=== PATIENT | male | born 1950 | race Two or more races ===

== ENCOUNTER 2018-12-19 10:08 | Inpatient (IN) | payer OTHER ==
[~2018-12-19] VITALS: Ht 167.6 cm; Wt 88.5 kg
[2018-12-19] MEDS ORDERED: IV NS 0.9% 1,000 ML BAG IV ONE ×3 (10:30→13:30)
[2018-12-19 11:26] LABS: BASOPHILS % (AUTO) 0.5 % (0.0-2.0); HEMATOCRIT 38 % (39-51); LYMPHOCYTES # (AUTO) 0.3 /CMM (0.8-4.8); LYMPHOCYTES % (AUTO) 3.9 % (20.0-44.0); MEAN CORPUSCULAR HGB CONC 32 g/dl (31.0-36.0); MEAN CORPUSCULAR VOLUME 94 fL (80-96); MONOCYTES # (AUTO) 0.4 /CMM (0.1-1.30); MONOCYTES % (AUTO) 6.4 % (2.0-12.0); NEUTROPHILS # (AUTO) 6.1 /CMM (1.8-8.9); NEUTROPHILS % (AUTO) 89.2 % (43.0-81.0); PLATELET COUNT (AUTO) 106 /CMM (150-450); RED BLOOD CELL COUNT(AUTO) 4.01 MIL/uL (4.5-6.0); WHITE BLOOD COUNT (AUTO) 6.9 K/uL (4.3-11.0)
[2018-12-19 11:30] LABS: CALCIUM, SERUM 8.4 mg/dL (8.5-10.1); CARBON DIOXIDE 16 mmol/L (21-32); CHLORIDE 104 mmol/L (98-107); CREATININE 1.5 mg/dL (0.6-1.3); GLUCOSE 205 mg/dL (74-106); POTASSIUM 4.1 mmol/L (3.5-5.1); SODIUM SERUM 137 mmol/L (136-145); UREA NITROGEN, BLOOD 19 mg/dL (7-18)
[2018-12-19] MEDS ORDERED: CYAN-51 PO (11:31)
[2018-12-19] MEDS ORDERED: LEVO75TA7 PO (11:31)
[2018-12-19] MEDS ORDERED: ASCO500T9 PO (11:31)
[2018-12-19] MEDS ORDERED: ATOR10TA PO (11:31)
[2018-12-19] MEDS ORDERED: ASPI-1152 PO (11:31)
[2018-12-19] MEDS ORDERED: MELO-107 PO (11:31)
[2018-12-19] MEDS ORDERED: INSU100V27 SQ (11:31)
[2018-12-19] MEDS ORDERED: FURO-145 PO (11:31)
[2018-12-19] MEDS ORDERED: MAGN200T9 PO (11:31)
[2018-12-19] MEDS ORDERED: OMEP20CA11 PO (11:31)
[2018-12-19] MEDS ORDERED: LISI-603 PO (11:31)
[2018-12-19] MEDS ORDERED: APIX5TAB PO (11:31)
[2018-12-19 11:35] LABS: ALANINE AMINOTRANSFERASE 35 U/L (12-78); ALBUMIN 2.7 g/dL (3.4-5.0); ALKALINE PHOSPHATASE 116 U/L (46-116); ASPARTATE AMINOTRANSFERASE 76 U/L (15-37); BILIRUBIN,DIRECT 0.2 mg/dL (0.0-0.2); BILIRUBIN,TOTAL 0.7 mg/dL (0.2-1.0); TOTAL PROTEIN, SERUM 6.1 g/dL (6.4-8.2)
[2018-12-19 11:56] LABS: APPEARANCE,URINE Turbid (CLEAR); BILIRUBIN,URINE Negative (NEGATIVE); BLOOD, URINE Large Ery/uL (NEGATIVE); KETONES,URINE Trace (NEGATIVE); LEUKOCYTE ESTERASE ,URINE Large (NEGATIVE); NITRITE, URINE Positive (NEGATIVE); PROTEIN,URINE 30 mg/dl (NEGATIVE); UGLUCOSE 100 MG/DL mg/dL (NEGATIVE); UROBILINOGEN,URINE 0.2 EU/dL (0.2)
[2018-12-19 11:57] LABS: COLOR,URINE Dark Yellow (YELLOW)
[2018-12-19 12:00] LABS: BACTERIA,URINE Many /HPF (None Seen); RBC,URINE TOO NUMEROUS TO COUN /HPF (0-2); SQUAMOUS EPITHELIAL CELL,UR Few /HPF (None Seen); WBC,URINE TOO NUMEROUS TO COUN /HPF (0-3)
[2018-12-19] MEDS ORDERED: PIPERACILLIN /TAZOBACTAM 3.375 G in IV D5W 50 ML IV SCH (12:00)
[2018-12-19] MEDS ORDERED: METO25TA6 PO (12:03)
[2018-12-19] MEDS ORDERED: IV NS 0.9% 250 ML IV ONE (12:30)
[2018-12-19] MEDS ORDERED: CT SWABBABLE VALVE TRANS SET 1 EA INFUS.SET MC ONE (12:30)
[2018-12-19] MEDS ORDERED: IOHEXOL-350 100 ML VIAL IV ONE (12:30)
--- NOTE | 2018-12-19 12:43 | NUR ---
Patient has RT hand IVF infusine well no edema ,no pain ,needs another heplock patient has multiple stick non succesful ,telecommunications field technician ok the rt hand IV good blood return ,
--- NOTE | 2018-12-19 12:43 | NUR ---
Assumed care report given by Gerson Sanchez
--- NOTE | 2018-12-19 13:07 | NUR ---
Dr. Dupree @ bedside with order ekf
--- NOTE | 2018-12-19 13:57 | NUR ---
airdrop systems technician @ bedside for # 2 lactate
--- NOTE | 2018-12-19 15:00 | NUR ---
Called Bashir for report not ready spoke to Taye Garcia .I called supervisor frame assembly awaiting for bed
--- NOTE | 2018-12-19 15:22 | NUR ---
Patient resting comfortable no s/s of distress awaiting for bed
[2018-12-19 16:00] VITALS: BP 102/69
--- NOTE | 2018-12-19 16:06 | NUR ---
Family made aware plan of care repoprt given to Sherif NIX
[2018-12-19] MEDS ORDERED: Z GUARD REMEDY 2 OZ OINT TP PRN (19:00)
[2018-12-19] MEDS ORDERED: ONDANSETRON HCL/PF 4 MG/2 ML VIAL IVP PRN (19:00)
[2018-12-19] MEDS ORDERED: MAG HYDROX/AL HYDROX/SIMETH 30 ML UDC PO PRN (19:00)
[2018-12-19] MEDS ORDERED: ZOLPIDEM TARTRATE 5 MG TABLET PO PRN (19:00)
[2018-12-19] MEDS ORDERED: ACETAMINOPHEN 325 MG TABLET PO PRN (19:00)
[2018-12-19] MEDS ORDERED: MAGNESIUM HYDROXIDE 30 ML UDC PO PRN (19:00)
[2018-12-19] MEDS ORDERED: HYDROCODONE/APAP 5/325MG 1 EACH TABLET PO PRN (19:00)
[2018-12-19] MEDS ORDERED: DEXTROSE 50%-WATER 50 ML DISP.SYRIN IV PRN (19:30)
[2018-12-19 20:00] VITALS: BP 126/70
--- NOTE | 2018-12-19 20:41 | NUR ---
TELE NOTES CLOSING PATIENT CAME IN TO THE ER DUE TO A FALL AT HOME , PATIENT WAS ADMITTED TO THE ER DURING TREATMENT PATIENT WAS GIVEN ZOSYN AND NORMAL SALINE. PATIENT WAS TRANSFEREE TO [facility] PATIENT WAS REVICED BY AM SHIFT. PATIENTS DIAGNOSIS WAS UTI. PATIENT IS A/O X4 HEAD : NO SIGNS OF CUTS BRUSIES OR TRAUMA NO DRAINAGE PRESENT EYES: PATIENTS EYES ARE BRISK AND ACCOMMODATING PATIENTS LUNGS SOUNDS CLEAR AND NO SIGNS OF CRACKLERS OR STRIDOR. HEART: PATIENTS HEART SOUNDS REGULAR WITH SR DURING ER PATIENT HAS AFIB GI/ PATIENT NO BOWEL MOVEMENT DURING SHIFT. PATIENT CURRETLY HAS CATHETER SUPRAPUBIC PATIENTS URINE IS DARK YELLOW AND CLOUDY SKIN: ABDOMEN RASH : SACRAL BRUSING : RIGHT AND LEFT HEEL REDNESS : LEFT ANKLE SCAR PATIENT CURRENTLY EXPERIENCING WEAKNESS ON THE EXTREMITIES PATIENT RECEIVED BY PM SHIFT, BED LOW POSITION , SAFETY MAINTAINED AND CALL LIGHT WITH IN REACH WAS INFORMED ABOUT PLAN OF CARE AND DX.
--- NOTE | 2018-12-19 20:45 | NUR ---
GOT A CALL FROM LAB PATIENT'S TROPONIN IS [phone]. EDUCATIONAL RESOURCE COORDINATOR GORDON PASCUAL NOTIFIED. NO NEW ORDERS FOR NOW. WILL CONTINUE TO MONITOR PATIENT CLOSELY.
[2018-12-19] MEDS ORDERED: VANCOMYCIN 1 GM in IV D5W 250 ML IV SCH (21:00)
[2018-12-19] MEDS ORDERED: VANCOMYCIN 1 GM VIAL ONE (21:29)
[2018-12-19] MEDS: BLOOD SUGAR DIAGNOSTIC 1 EACH STRIP IN SCH ×2 (21:36→22:01)
[2018-12-19] MEDS: METOPROLOL TARTRATE 25 MG TABLET PO SCH (21:36)
[2018-12-19] MEDS: APIXABAN 5 MG TABLET PO SCH (22:02)
[2018-12-19] MEDS: INSULIN REGULAR, HUMAN 100 UNIT/ML 3 ML VIAL SQ PRN (22:09)
[2018-12-20] VITALS: BP 91/53
[2018-12-20] MEDS: ZOSYN IVPB 3.375 G in IV D5W 50ml IV SCH ×4 (00:26→21:58)
[2018-12-20] MEDS: IV NS 0.9% 1,000 ML IV PRN ×2 (00:27→18:03)
--- NOTE | 2018-12-20 01:11 | NUR ---
ANAYA RN NOTES RECEIVED REPORT FROM RAMIRO NIX FOR JENNIFER. PATIENT RESTING COMFORTABLY & IN NO APPARENT RESPIRATORY OR CARDIAC DISTRESS. COOLING MEASURES STILL IN PLACE FOR FEVER.
[2018-12-20 04:00] VITALS: BP 112/62
[2018-12-20 06:33] LABS: BASOPHILS % (AUTO) 0.8 % (0.0-2.0); EOSINOPHILS % (AUTO) 0.1 % (0.0-6.0); HEMATOCRIT 35 % (39-51); HEMOGLOBIN 11.6 g/dL (13.5-17.5); LYMPHOCYTES # (AUTO) 0.2 /CMM (0.8-4.8); LYMPHOCYTES % (AUTO) 7.6 % (20.0-44.0); MEAN CORPUSCULAR HGB CONC 33 g/dl (31.0-36.0); MEAN CORPUSCULAR VOLUME 91 fL (80-96); MONOCYTES # (AUTO) 0.2 /CMM (0.1-1.30); MONOCYTES % (AUTO) 6.6 % (2.0-12.0); NEUTROPHILS # (AUTO) 2.6 /CMM (1.8-8.9); NEUTROPHILS % (AUTO) 84.9 % (43.0-81.0); PLATELET COUNT (AUTO) 90 /CMM (150-450); RED BLOOD CELL COUNT(AUTO) 3.85 MIL/uL (4.5-6.0); WHITE BLOOD COUNT (AUTO) 3.1 K/uL (4.3-11.0)
[2018-12-20 06:40] LABS: CREATININE 1.1 mg/dL (0.6-1.3); MAGNESIUM 1.5 mg/dL (1.8-2.4); PHOSPHORUS 3.1 mg/dL (2.5-4.9); POTASSIUM 3.9 mmol/L (3.5-5.1)
[2018-12-20] MEDS: BLOOD SUGAR DIAGNOSTIC 1 EACH STRIP IN SCH ×4 (07:33→21:40)
[2018-12-20] MEDS: LEVOTHYROXINE SODIUM 75 MCG TABLET PO SCH (07:33)
[2018-12-20] MEDS: PANTOPRAZOLE 40 MG TABLET.DR PO SCH ×3 (07:33→21:46)
[2018-12-20] MEDS ORDERED: FEE PK DOSING 1 MIN EA MC ONE ×2 (07:46→12:31)
[2018-12-20 08:00] VITALS: BP 122/70
[2018-12-20] MEDS: ASPIRIN EC 81 MG TABLET.DR PO SCH (08:16)
[2018-12-20] MEDS: CYANOCOBALAMIN 500 MCG TABLET PO SCH (08:17)
[2018-12-20] MEDS: ASCORBIC ACID 500 MG TABLET PO SCH (08:17)
[2018-12-20] MEDS: METOPROLOL TARTRATE 25 MG TABLET PO SCH ×3 (08:19→18:04)
[2018-12-20] MEDS: VANCOMYCIN 1 GM in IV D5W 250 ML IV SCH ×2 (08:24→21:43)
[2018-12-20] MEDS: APIXABAN 5 MG TABLET PO SCH ×2 (09:00→18:03)
[2018-12-20] MEDS ORDERED: ATORVASTATIN 10 MG TABLET PO SCH (09:00)
[2018-12-20] MEDS ORDERED: VANCOMYCIN 0.75 GM in IV D5W 250 ML IV SCH (09:00)
--- NOTE | 2018-12-20 10:02 | NUR ---
WOUND CARE CONSULT: PT PRESENTS WITH BRUISING TO BACK, RASH TO LEFT ABDOMINAL/GROIN FOLD AND SLIGHT REDNESS TO SUPRAPUBIC CATH SITE, PRESENT ON ADMISSION. PER PT'S , PT HAS NOT BEEN ABLE TO CLEAN HIMSELF WELL RECENTLY. SUPRAPUBIC SITE WAS CLEANSED WITH NS, THEN NEW DRAIN-SPONGE APPLIED. SKIN TO BE KEPT CLEAN AND DRY. DEFER TO MD FOR SUPRAPUBIC SITE (POSSIBLE UROLOGY CONSULT). RECOMMENDATIONS MADE FOR SKIN CARE AND CARE OF RASH ON ABD/GROIN FOLDS. DISCUSSED SKIN CARE AND PROTECTION WITH NURSING STAFF. WILL SEE ZEB. IN AGREEMENT WITH PLAN OF CARE. Addendum: 12/20/18 at 1004 by BEAU OBRIEN WNDNU Amended: Links added.
[2018-12-20 12:00] VITALS: BP 111/67
[2018-12-20] MEDS: INSULIN REGULAR, HUMAN 100 UNIT/ML 3 ML VIAL SQ PRN ×2 (12:39→21:43)
[2018-12-20] MEDS: GENTAMICIN 120 MG in IV D5W 100 ML IV SCH (15:29)
[2018-12-20 16:00] VITALS: BP 128/75
[2018-12-20] MEDS: LIPASE/PROTEASE/AMYLASE 1 EACH CAPSULE.DR PO SCH (17:59)
[2018-12-20] MEDS: CLOTRIMAZOLE 1% 15 GM TUBE TP SCH (17:59)
[2018-12-20] MEDS: Magnesium 1GM/D5W 100ML PREMIX 100 ML IV SCH ×2 (17:59→19:09)
--- NOTE | 2018-12-20 19:00 | NUR ---
DIRECTOR AND PROFESSOR CLOSING PATIENT REMAINS A/Ox4, ON ROOM AIR, NO RESPIRATORY DISTRESS NOTED. DENIES CHEST PAIN. NO S/S STROKE NOTED. AT BEDSIDE. TELE MONITOR ATTACHED, SINUS RHYTHM HR 90s. SUPRAPUBLIC CATHETER DRAINING CLOUDY YELLOW URINE, SITE CLEANSED, PICTURE TAKEN. PATIENT AMBULATORY WITH WALKER W/ STANDBY ASSISTANCE. NOTED WEAKNESS. DENIES DIZZINESS UPON STANDING. SEEN BY WOUND CARE NURSE, ORDERS NOTED AND IMPLEMENTED. R HAND 18G INFUSING NS @100mL/HR. NO S/S INFILTRATION NOTED. PATIENT IS REFUSING TO BE POKED WITH ANOTHER IV SITE FOR ORDERED CT ANGIO TOMORROW, STATING THAT HE "HAD A CT YESTERDAY AND THE RADIOLOGIST SAID IT WAS OK TO USE LONG CONTRAST IS PUSHED SLOWLY". CONSENT PLACED IN CHART. NOTED LOW PLTS, PER CAMMY CASTELLANOS OKAY TO GIVE, PATIENT FALL RISK. NONSLIP SOCKS ON, BED ALARM ON, CALL LIGHT WITHIN REACH, PATIENT ABLE TO MAKE NEEDS KNOWN.
[2018-12-20 20:00] VITALS: BP 128/77
--- NOTE | 2018-12-20 20:15 | NUR ---
ANAYA RN OPENING NOTES RECEIVED REPORT FROM SUSY NIX. PATIENT A/A/O X4, ABLE TO VERBALIZE NEEDS. BREATHING EVEN & UNLABORED, TOLERATING ROOM AIR. DENIES ANY SOB OR DIFFICULTY BREATHING. ON TELE W/ SINUS RHYTHM W/ PVC, HR 80S. RIGHT HAND IV #18 INTACT & PATENT W/ DRESSING CDI & IVF NS INFUSING WELL @ 100 ML/HR. SUPRAPUBIC CATH IN PLACE & DRAINING DARK YELLOW URINE. DENIES ANY PAIN OR DISCOMFORT @ THIS TIME. SAFETY MEASURES IN PLACE W/ SIDE RAILS UP & BED ALARM ON. CALL LIGHT PLACED WITHIN REACH & INSTRUCTED TO CALL FOR ASSISTANCE. WILL CONTINUE TO MONITOR CLOSELY.
[2018-12-20] MEDS ORDERED: PIPERACILLIN /TAZOBACTAM 3.375 G VIAL IV ONE (21:57)
[2018-12-21] VITALS: BP 97/66
[2018-12-21] MEDS: GENTAMICIN 120 MG in IV D5W 100 ML IV SCH ×2 (00:18→15:19)
[2018-12-21 04:00] VITALS: BP 105/51
--- NOTE | 2018-12-21 06:00 | NUR ---
LITHOGRAPH PRESS OPERATOR NOTES CLARIFIED WITH RADIOLOGY REGARDING PATIENT'S IV SITE ON RIGHT HAND. PER RADIOLOGIST, MELINDA, IV #18 ON RIGHT HAND IS OK TO USE FOR CT ANGIOGRAM SCHEDULED TODAY LONG IT'S PATENT & FLUSHING WELL.
[2018-12-21] MEDS ORDERED: PIPERACILLIN /TAZOBACTAM 3.375 G VIAL IV ONE (06:23)
[2018-12-21] MEDS: ZOSYN IVPB 3.375 G in IV D5W 50ml IV SCH ×2 (06:27→14:02)
[2018-12-21] MEDS: METOPROLOL TARTRATE 25 MG TABLET PO SCH ×4 (06:28→17:58)
--- NOTE | 2018-12-21 07:20 | NUR ---
RN OPENING NOTES PT IS A&OX3 DENIES PAIN OR SOB AT PRESENT TIME. PT IS SCHEDULED FOR A CTCA TODAY HAS ONLY A RIGHT HAND 18 GAUGE. PER EXPORT MANAGER RN OKAY TO USE. BED IS LOCKED AND IN LOWEST POSITION WITH CALL LIGHT IN REACH. SUPRAPUBIC DRAINING TO GRAVITY. WILL CONTINUE TO MONITOR.
[2018-12-21 08:00] VITALS: BP 101/63
[2018-12-21] MEDS: BLOOD SUGAR DIAGNOSTIC 1 EACH STRIP IN SCH ×3 (08:13→17:23)
[2018-12-21] MEDS: LEVOTHYROXINE SODIUM 75 MCG TABLET PO SCH (08:22)
[2018-12-21] MEDS: ASPIRIN EC 81 MG TABLET.DR PO SCH (08:23)
[2018-12-21] MEDS: ASCORBIC ACID 500 MG TABLET PO SCH (08:23)
[2018-12-21] MEDS: CYANOCOBALAMIN 500 MCG TABLET PO SCH (08:24)
[2018-12-21] MEDS: LIPASE/PROTEASE/AMYLASE 1 EACH CAPSULE.DR PO SCH ×3 (08:24→17:20)
[2018-12-21] MEDS: APIXABAN 5 MG TABLET PO SCH ×2 (08:27→17:22)
[2018-12-21 08:45] LABS: BASOPHILS % (AUTO) 0.8 % (0.0-2.0); EOSINOPHILS % (AUTO) 3.6 % (0.0-6.0); HEMATOCRIT 34 % (39-51); HEMOGLOBIN 11.2 g/dL (13.5-17.5); LYMPHOCYTES # (AUTO) 0.5 /CMM (0.8-4.8); LYMPHOCYTES % (AUTO) 16.9 % (20.0-44.0); MEAN CORPUSCULAR HGB CONC 33 g/dl (31.0-36.0); MEAN CORPUSCULAR VOLUME 90 fL (80-96); MONOCYTES # (AUTO) 0.3 /CMM (0.1-1.30); NEUTROPHILS # (AUTO) 1.9 /CMM (1.8-8.9); NEUTROPHILS % (AUTO) 66.7 % (43.0-81.0); PLATELET COUNT (AUTO) 90 /CMM (150-450); RED BLOOD CELL COUNT(AUTO) 3.76 MIL/uL (4.5-6.0); WHITE BLOOD COUNT (AUTO) 2.9 K/uL (4.3-11.0)
--- NOTE | 2018-12-21 09:00 | NUR ---
LAURA FROM RADIOLOGY CALLED ASKING WHAT ACCESS. STATES PT MUST HAVE A 18 OR 20 GAUGE IN AC FOR THIS TEST. PT REFUSING TO ALLOW FOR MORE ATTEMPTS OF INSERTION OF ANOTHER IV.
[2018-12-21 09:18] LABS: BAND % (MANUAL) 1 % (0.0-5.0); EOSINOPHILS % (MANUAL) 4 % (0-4); LYMPHOCYTES % (MANUAL) 13 % (16-48); MONOCYTES % (MANUAL) 6 % (0-11.0); NEUTROPHILS % (MANUAL) 76 (42-76)
[2018-12-21 09:20] LABS: CALCIUM, SERUM 7.7 mg/dL (8.5-10.1); CREATININE 0.9 mg/dL (0.6-1.3); MAGNESIUM 1.8 mg/dL (1.8-2.4); POTASSIUM 3.4 mmol/L (3.5-5.1)
[2018-12-21] MEDS: VANCOMYCIN 1 GM in IV D5W 250 ML IV SCH (10:05)
[2018-12-21] MEDS: CLOTRIMAZOLE 1% 15 GM TUBE TP SCH ×2 (10:19→17:23)
--- NOTE | 2018-12-21 10:20 | NUR ---
PT AGREED TO MIDLINE. INSERTED BY SOCORRO VIVAR. 18 GAUGE IN [place]. CALLED RADIOLOGY TO MAKE THEM AWARE OF NEW ACCESS.
[2018-12-21] MEDS ORDERED: IV NS 0.9% 250 ML IV ONE (12:06)
[2018-12-21] MEDS ORDERED: IOHEXOL-350 100 ML VIAL IV ONE ×2 (12:06→12:44)
[2018-12-21] MEDS ORDERED: CT SWABBABLE VALVE TRANS SET 1 EA INFUS.SET MC ONE (12:06)
[2018-12-21] MEDS ORDERED: IV NS 0.9% 500 ML IV PRN (12:30)
[2018-12-21] MEDS ORDERED: NITROGLYCERIN 4.9 GM SPRAY SL ONE (12:30)
[2018-12-21] MEDS ORDERED: METOPROLOL TARTRATE 50 MG TABLET PO ONE (12:30)
[2018-12-21] MEDS ORDERED: LIPA1CAP27 PO (13:54)
[2018-12-21 16:00] VITALS: BP 109/69
[2018-12-21] MEDS ORDERED: MEROPENEM 500 MG in IV NS 0.9% 50 ML IV SCH (16:00)
[2018-12-21] MEDS: IV NS 0.9% 1,000 ML IV PRN (17:26)
[2018-12-21 17:58] VITALS: BP 109/69
--- NOTE | 2018-12-21 19:18 | NUR ---
RN CLOSING NOTES PT DENIES PAIN OR SOB AT PRESENT MOMENT. REPORT GIVEN TO SONAR SUBSYSTEM EQUIPMENT OPERATOR RN. AWAITING TRANSFER TO [place] [facility]RANGEMENT BEING DONE BY PT [employer]. REPORT GIVEN TO SONAR SUBSYSTEM EQUIPMENT OPERATOR RN FOR JENNIFER.
--- NOTE | 2018-12-21 19:30 | NUR ---
MS RN NOTE: RECEIVED PT ON BED ALERT AND ORIENTED X4. ABLE TO MAKE NEEDS KNOWN. NO APPARENT DISTRESS NOTED. NO COMPLAINTS OF PAIN OR DISCOMFORT AT THIS TIME. RIGHT UPPER ARM MIDLINE INTACT AND PATENT, IVF INFUSING WELL. SUPRAPUBIC CATH INTACT AND PATENT, DRAINING WELL. KEPT CLEAN, DRY AND COMFORTABLE. SAFETY AND FALL PRECAUTIONS OBSERVED AND MAINTAINED. WILL CONTINUE TO MONITOR PT.
[2018-12-21] MEDS ORDERED: VANCOMYCIN 1.25 GM in IV D5W 250 ML IV SCH (21:00)
--- NOTE | 2018-12-21 21:45 | NUR ---
MS SOIL FERTILITY EXTENSION SPECIALIST NOTE: PT WAS TRANSFERRED TO [place] IN STABLE CONDITION. NO ACUTE DISTRESS NOTED. NO COMPLAINTS OF PAIN OR DISCOMFORT AT THIS TIME. NO SOB NOTED. DISCHARGE PICTURES TAKEN AND PLACED ON CHART. DISCHARGE INSTRUCTIONS GIVEN. EXIT CARE PROVIDED.
== END 2018-12-22 00:04 | disposition short-term general hospital (02) | DRG 698 ==
LOC: ER 10:08 → TELE-TD 15:25 → TELE1 12-20 03:39 → MEDSG1 12-21 09:56
PROVIDERS: ADMIT Nurse Practitioner Acute Care; ATTEND Hospitalist
PROC: 05HB33Z Insertion of Infusion Device into Right Basilic Vein, Percutaneous Approach (ICD-10-PCS; principal; 2018-12-21)
DX: T83.510A Infection and inflammatory reaction due to cystostomy catheter, initial encounter (principal); A41.9 Sepsis, unspecified organism; I21.A1 Myocardial infarction type 2; N17.0 Acute kidney failure with tubular necrosis; E44.0 Moderate protein-calorie malnutrition; E87.2 Acidosis; N39.0 Urinary tract infection, site not specified; D61.818 Other pancytopenia; J90 Pleural effusion, not elsewhere classified; I48.91 Unspecified atrial fibrillation; Z85.46 Personal history of malignant neoplasm of prostate; Z85.07 Personal history of malignant neoplasm of pancreas; Z79.01 Long term (current) use of anticoagulants; Z88.2 Allergy status to sulfonamides; D63.8 Anemia in other chronic diseases classified elsewhere; E83.42 Hypomagnesemia; N18.9 Chronic kidney disease, unspecified; E88.09 Other disorders of plasma-protein metabolism, not elsewhere classified; Z68.31 Body mass index [BMI] 31.0-31.9, adult; Z86.718 Personal history of other venous thrombosis and embolism; Y84.6 Urinary catheterization as the cause of abnormal reaction of the patient, or of later complication, without mention of misadventure at the time of the procedure; W18.30XA Fall on same level, unspecified, initial encounter; Y92.89 Other specified places as the place of occurrence of the external cause; B96.1 Klebsiella pneumoniae [K. pneumoniae] as the cause of diseases classified elsewhere; B96.20 Unspecified Escherichia coli [E. coli] as the cause of diseases classified elsewhere; Q54.9 Hypospadias, unspecified
CPT/HCPCS: 36415; 71045-TC; 75574; 80048-TC; 80061-TC; 80076-TC; 80202-TC; 81000-TC; 82962-TC; 83605-TC; 83735-TC; 84100-TC; 84484-TC; 85025-TC; 85730-TC; 86850-TC; 87040-TC; 87081-TC; 87086-TC; 87186-TC; 93307-TC; 97110-TC; 97116-TC; 97530-TC; A4216; G0378; J1580; J1815; J2185; J2543; J3370; J3475; J7030; J7050; J7060; Q9967